=== PATIENT | female | born 1970 | race Two or more races ===

== ENCOUNTER 2023-01-10 09:09 | Emergency (ER) | payer MEDICAID ==
[~2023-01-10] VITALS: Ht 152.4 cm; Wt 87.5 kg
[2023-01-10 10:05] VITALS: BP 160/87
[2023-01-10] MEDS ORDERED: AZIT500T66 PO (10:08)
[2023-01-10] MEDS ORDERED: PROM1SOL4 PO (10:08)
[2023-01-10] MEDS ORDERED: PRED20TA2 PO (10:09)
[2023-01-10] MEDS ORDERED: cefTRIAXone SOD 1,000 MG VL IM ONE (10:15)
== END 2023-01-10 10:21 | disposition home or self-care (01) ==
LOC: ER 09:09
DX: J03.90 Acute tonsillitis, unspecified (principal); J20.9 Acute bronchitis, unspecified; K50.90 Crohn's disease, unspecified, without complications; F17.210 Nicotine dependence, cigarettes, uncomplicated
CPT/HCPCS: 71046; 96372; 99283; J0696